=== PATIENT | female | born 1980 | race Caucasian/White ===

== ENCOUNTER 2023-12-12 07:39 | Emergency (ER) | payer MEDICAID ==
[~2023-12-12] VITALS: Ht 167.6 cm; Wt 85.0 kg
[2023-12-12 07:52] VITALS: TEMP 97.9; O2SAT 99
[2023-12-12 08:49] VITALS: BP 114/79; PULSE 89; RESP 18
[2023-12-12] MEDS: KETOROLAC 15MG/ML VIAL IM NR (08:49)
== END 2023-12-12 11:16 | disposition home or self-care (01) ==
LOC: ER 07:39
DX: M25.512 Pain in left shoulder (principal); J45.909 Unspecified asthma, uncomplicated; E11.9 Type 2 diabetes mellitus without complications
CPT/HCPCS: 99283; 81025; 73030; 96372; J1885